=== PATIENT | male | born 1945 | race Caucasian/White ===

== ENCOUNTER 2016-12-11 20:17 | Emergency (ER) | payer OTHER ==
[2016-12-11 20:26] VITALS: BP 140/94; PULSE 84; TEMP 98.3; BMI 34.9
--- NOTE | 2016-12-11 20:26 | PDOC ---
History of Present Illness - General History Source: Patient, Old Records Exam Limitations: No Limitations - History of Present Illness Initial Comments: 12/11/16 20:40 The patient is a 71 year old male presenting with his family, with a significant past medical history of AFIB ([place]), HTN, HLD, diverticulosis, rectal bleeding, colitis, gout and kidney stones (last 3 months ago), who presents to the emergency department with left sided flank pain and hematuria onset today. He reports that his hematuria is mild in nature. He states that his left flank pain ranges from mild to moderate, without mild radiation to his abdomen. He notes that certain movements exacerbates his pain. He reports that his last kidney stone was 3 months ago, and it was 5 mm. He notes that he is not aware if it passed or not. The patient denies chest pain, shortness of breath, headache and dizziness. Denies fever, chills, nausea, vomit, diarrhea and constipation. Denies dysuria, frequency and urgency Allergies: None Past surgical history: Cardiac catherization, right knee arthroscopy surgeyr Social history: Rare alcohol use. No tobacco or drug use reported PMD - Dr. Bui Urology - Dr. Monotya [facility] - Dr. Gardner <Robert Brown - Last Filed: 12/11/16 20:40> <Patt Toscano - Last Filed: 12/12/16 05:31> - General Chief Complaint: Pain, Acute Stated Complaint: ABDOMINAL PAIN Time Seen by Provider: 12/11/16 20:25 Past History <Robert Brown - Last Filed: 12/11/16 20:40> - Past Medical History Anemia: No Asthma: No Cancer: No Cardiac Disorders: Yes (ATRIAL FIBRILLATION) CVA: No COPD: No CHF: No Dementia: No Diabetes: No GI Disorders: Yes (DIVERTICULOSIS, RECTAL BLEEDING, HX OF ISCHEMIC COLITIS?) Disorders: Yes (GOUT) HTN: Yes Hypercholesterolemia: Yes Liver Disease: No Seizures: No Thyroid Disease: No - Surgical History Abdominal Surgery: No Appendectomy: No Cardiac Surgery: (CARDIAC CATH) Cholecystectomy: No Lung Surgery: No Neurologic Surgery: No Orthopedic Surgery: Yes (RT KNEE ARTHROSCOPIC SX) - Psycho/Social/Smoking Cessation Hx Smoking History: Never smoked Have you smoked in the past 12 months: No Hx Alcohol Use: Yes (RARE) Drug/Substance Use Hx: No <Patt Toscano - Last Filed: 12/12/16 05:31> - Past Medical History Allergies/Adverse Reactions: Allergies Allergy/AdvReac Type Severity Reaction Status Date / Time No Known Allergies Allergy Verified 12/11/16 20:24 Home Medications: Ambulatory Orders Allopurinol [Zyloprim -] 300 mg PO HS 04/23/14 Cholecalciferol (Vitamin D3) [Vitamin D3] 2,000 unit PO DAILY 04/23/14 Dextrin [Fiber] 350 gm PO DAILY 04/23/14 Ezetimibe/Simvastatin [Vytorin 10-20 mg Tablet] 1 tab PO ASDIR 04/23/14 Metoprolol Succinate [Toprol Xl] 100 mg PO HS 04/23/14 Olmesartan Medoxomil [Benicar -] 40 mg PO DAILY 04/23/14 Pnv/Iron,Carb/Om-3/FA/Fat 1 [Multivitamin with Minerals Cap] 1 each PO DAILY Guar Gum [Benefiber] 1 each PO BID #0 packet 04/24/14 No Aspirin/Nsaids 04/24/14 Rivaroxaban [Xarelto -] 20 mg PO DAILY #0 04/24/14 Oxycodone HCl/Acetaminophen [Percocet 5/325 -] 1 tab PO Q6H #14 tablet MDD 4 05/19 Oxycodone HCl/Acetaminophen [Percocet 5/325 -] 1 tab PO Q6H #20 tablet MDD 4 05/19 Tamsulosin HCl [Flomax] 0.4 mg PO DAILY #7 cap.er.24h 12/11/16 Review of Systems - Review of Systems Able to Perform ROS?: Yes Comments:: 12/11/16 20:40 GENERAL/CONSTITUTIONAL: No fever or chills. No weakness. HEAD, EYES, EARS, NOSE AND THROAT: No change in vision. No ear pain or discharge. No sore throat. CARDIOVASCULAR: No chest pain or shortness of breath RESPIRATORY: No cough, wheezing, or hemoptysis. GASTROINTESTINAL: No nausea, vomiting, diarrhea or constipation. GENITOURINARY: (+) Left flank pain, hematuria. No dysuria, frequency MUSCULOSKELETAL: No joint or muscle swelling or pain. No neck pain. SKIN: No rash NEUROLOGIC: No headache, vertigo, loss of consciousness, or change in strength/ sensation. ENDOCRINE: No increased thirst. No abnormal weight change HEMATOLOGIC/LYMPHATIC: No anemia, easy bleeding, or history of blood clots. ALLERGIC/IMMUNOLOGIC: No hives or skin allergy. <Robert Brown - Last Filed: 12/11/16 20:40> *Physical Exam - Vital Signs Last Vital Signs Temp Pulse Resp BP Pulse Ox 98.3 F 84 22 140/94 98 12/11/16 20:24 12/11/16 20:24 12/11/16 20:24 12/11/16 20:24 12/11/16 20:24 - Physical Exam Comments: 12/11/16 20:41 GENERAL: Awake, alert, and fully oriented, in no acute distress HEAD: No signs of trauma, normocephalic, atraumatic EYES: PERRLA, EOMI, sclera anicteric, conjunctiva clear ENT: Auricles normal inspection, hearing grossly normal, nares patent, oropharynx clear without exudates. Moist mucosa NECK: Normal ROM, supple, no lymphadenopathy, JVD, or masses LUNGS: No distress, speaks full sentences, clear to auscultation bilaterally HEART: (+) Irregularly irregular. Normal S1 and S2, no murmurs, rubs or gallops , peripheral pulses normal and equal bilaterally. ABDOMEN: (+) Left flank tenderness and left lower quadrant tenderness. Soft, normoactive bowel sounds. No guarding, no rebound. No masses EXTREMITIES: Normal inspection, Normal range of motion, no edema. No clubbing or cyanosis. NEUROLOGICAL: Cranial nerves II through XII grossly intact. Normal speech, normal gait, no focal sensorimotor deficits SKIN: Warm, Dry, normal turgor, no rashes or lesions noted. <Robert Brown - Last Filed: 12/11/16 20:40> ED Treatment Course - LABORATORY CBC & Chemistry Diagram: 12/11/16 20:35 12/11/16 20:35 <Patt Toscano - Last Filed: 12/12/16 05:31> Medical Decision Making - Medical Decision Making 12/11/16 22:24 Patient Name: Devante Galdamez THIS IS A PRELIMINARY REPORT FROM [employer] [employer] IMAGES: 483 EXAM DATE AND TIME: 2016-12-11 21:32:24.0 EXAM: CT ABDOMEN AND PELVIS WITHOUT CONTRAST 4 mm stone distal left ureter causing minimal hydronephrosis. Punctate stones left kidney. Unremarkable pancreas and gallbladder. No bowel obstruction, colitis, free fluid or free air. Normal appendix extending into a small right inguinal region hernia that also contains fat. Diverticulosis colon. Nodular thickening bilateral adrenal glands. Coronary artery disease. THIS DOCUMENT HAS BEEN ELECTRONICALLY SIGNED 12/12/16 05:31 Pt will follow with DR. Bui and Dr. Montoya as an outpatient; hehas a 4mm stone which will likely pass on its own. <Patt Toscano - Last Filed: 12/12/16 05:31> *DC/Admit/Observation/Transfer - Attestations Scribe Attestion: 12/11/16 20:42 Documentation prepared by Robert Brown, acting as medical supervisor for Patt Toscano MD <Robert Brown - Last Filed: 12/11/16 20:40> - Discharge Dispostion Admit: No <Patt Toscano - Last Filed: 12/12/16 05:31> Diagnosis at time of Disposition: Ureteral stone - Discharge Dispostion Disposition: HOME Condition at time of disposition: Stable - Prescriptions Prescriptions: Tamsulosin HCl [Flomax] 0.4 mg PO DAILY #7 cap.er.24h Oxycodone HCl/Acetaminophen [Percocet 5/325 -] 1 tab PO Q6H #14 tablet MDD 4 Oxycodone HCl/Acetaminophen [Percocet 5/325 -] 1 tab PO Q6H #20 tablet MDD 4 - Referrals Referrals: Orlando Bui MD [Primary Care Provider] - - Patient Instructions Printed Discharge Instructions: Kidney Stones -- Adult
[2016-12-11] MEDS ORDERED: SODIUM CHLORIDE 0.9% 500 ML INFUS.BAG IV ONE (20:37)
[2016-12-11] MEDS ORDERED: morphine CARPU-JECT 2 MG/1 ML DISP.SYRIN IVPUSH ONE (20:38)
[2016-12-11] MEDS ORDERED: METOCLOPRAMIDE HCL INJECTION 10 MG/2 ML VIAL IVPB ONE (20:39)
[2016-12-11] MEDS ORDERED: METOCLOPRAMIDE HCL INJECTION 10 MG/2 ML VIAL ONE (20:42)
[2016-12-11] MEDS ORDERED: morphine CARPU-JECT 2 MG/1 ML DISP.SYRIN ONE (20:42)
[2016-12-11 20:48] LABS: BASOPHIL 0.4 % (0-2.0); EOSINOPHIL 1.1 % (0-4.5); MCH 32.2 pg (25.7-33.7); MCHC 32.3 g/dl (32.0-35.9); MEAN CELL VOLUME 99.6 fl (80-96); MEAN PLT VOLUME 9.3 fl (7.5-11.1); NEUTROPHILS 73.6 % (42.8-82.8); PLATELET COUNT 166 K/MM3 (134-434); RDW 15.2 % (11.9-15.9); WHITE BLOOD COUNT 8.9 K/mm3 (4.0-10.0)
[2016-12-11 21:01] LABS: INR 1.78 (0.82-1.09); PROTHROMBIN TIME (PATIENT) 19.8 SEC (9.98-11.88)
[2016-12-11 21:14] LABS: ALBUMIN 4.4 g/dl (3.4-5.0); BILIRUBIN,TOTAL 0.6 mg/dL (0.2-1.0); CALCIUM 9.2 mg/dL (8.5-10.1); COCKROFT - GAULT 75.79; CREATININE 1.3 mg/dL (0.7-1.3); TOT PROT 7.9 g/dl (6.4-8.2)
[2016-12-11] MEDS ORDERED: TAMSULOSIN HCL 0.4 MG CAP.ER.24H (FP) PO ONE (22:25)
[2016-12-11] MEDS ORDERED: TAMSULOSIN HCL 0.4 MG CAP.ER.24H (FP) ONE (22:29)
[2016-12-11 23:12] LABS: URINE APPEARANCE CLEAR; URINE BILIRUBIN NEGATIVE (NEGATIVE); URINE BLOOD 3+ (NEGATIVE); URINE COLOR YELLOW; URINE GLUCOSE (UA) NEGATIVE (NEGATIVE); URINE KETONE 1+ (NEGATIVE); URINE LEUK ESTERASE TRACE (NEGATIVE); URINE NITRITE NEGATIVE (NEGATIVE); URINE PROTEIN NEGATIVE (NEGATIVE); URINE UROBILINOGEN NEGATIVE E.U./dl (0.2-1.0)
[2016-12-11 23:14] LABS: URINE BACTERIA RARE /hpf (NONE SEEN); URINE HYALINE CAST 1 /lpf; URINE MUCUS RARE; URINE RBC 37 /hpf (0-3); URINE WBC 13 /hpf (3-5)
== END 2016-12-11 23:11 | disposition home or self-care (01) ==
LOC: JER 20:17
PROC: 3E033GC Introduction of Other Therapeutic Substance into Peripheral Vein, Percutaneous Approach (ICD-10-PCS; principal; 2016-12-11)
PROC: 3E033NZ Introduction of Analgesics, Hypnotics, Sedatives into Peripheral Vein, Percutaneous Approach (ICD-10-PCS; 2016-12-11)
PROC: 3E0337Z Introduction of Electrolytic and Water Balance Substance into Peripheral Vein, Percutaneous Approach (ICD-10-PCS; 2016-12-11)
DX: N20.1 Calculus of ureter (principal); I48.91 Unspecified atrial fibrillation; Z79.01 Long term (current) use of anticoagulants; I10 Essential (primary) hypertension; E78.5 Hyperlipidemia, unspecified; M10.9 Gout, unspecified; Z87.19 Personal history of other diseases of the digestive system; Z98.61 Coronary angioplasty status
CPT/HCPCS: 36415; 74176; 80053; 81003; 81015; 85025; 85610; 96374; 96375; 99281-25

== ENCOUNTER 2017-06-01 10:57 | Emergency (ER) | payer OTHER ==
[2017-06-01 11:02] VITALS: BP 144/83; PULSE 75; TEMP 97.7; BMI 34.9
--- NOTE | 2017-06-01 11:59 | PDOC ---
History of Present Illness - General Chief Complaint: Wound Stated Complaint: Scrotum skin tear Time Seen by Provider: 06/01/17 11:17 History Source: Patient Exam Limitations: No Limitations - History of Present Illness Initial Comments: 06/01/17 11:59 My Chief Complaint: rt. scrotom bleeding History of PResent Illness: Pt. is a 72 yr old male with h/o gout, atrial fib, gout, hyperlipidemia, HTN and renal calculi here today due to have bleeding from rt. scrotal sac this morning that has been bleeding intermittently. Patient denies scratching his testicles this morning or last night. Patient denies any testicular pain. Timing/Duration: intermittent (today ) Severity: mild Associated Symptoms: reports: other (bleeding from right scrotum since this morning) Past History - Past Medical History Allergies/Adverse Reactions: Allergies Allergy/AdvReac Type Severity Reaction Status Date / Time No Known Allergies Allergy Verified 06/01/17 11:02 Home Medications: Ambulatory Orders Allopurinol [Zyloprim -] 300 mg PO HS 04/23/14 Cholecalciferol (Vitamin D3) [Vitamin D3] 2,000 unit PO DAILY 04/23/14 Dextrin [Fiber] 350 gm PO DAILY 04/23/14 Ezetimibe/Simvastatin [Vytorin 10-20 mg Tablet] 1 tab PO ASDIR 04/23/14 Metoprolol Succinate [Toprol Xl] 100 mg PO HS 04/23/14 Olmesartan Medoxomil [Benicar -] 40 mg PO DAILY 04/23/14 Pnv/Iron,Carb/Om-3/FA/Fat 1 [Multivitamin with Minerals Cap] 1 each PO DAILY Guar Gum [Benefiber] 1 each PO BID #0 packet 04/24/14 No Aspirin/Nsaids 04/24/14 Rivaroxaban [Xarelto -] 20 mg PO DAILY #0 04/24/14 Oxycodone HCl/Acetaminophen [Percocet 5/325 -] 1 tab PO Q6H #14 tablet MDD 4 05/19 Oxycodone HCl/Acetaminophen [Percocet 5/325 -] 1 tab PO Q6H #20 tablet MDD 4 05/19 Tamsulosin HCl [Flomax] 0.4 mg PO DAILY #7 cap.er.24h 12/11/16 Anemia: No Asthma: No Cancer: No Cardiac Disorders: Yes (ATRIAL FIBRILLATION) CVA: No COPD: No CHF: No Dementia: No Diabetes: No GI Disorders: Yes (DIVERTICULOSIS, RECTAL BLEEDING, HX OF ISCHEMIC COLITIS?) Disorders: Yes (GOUT) HTN: Yes Hypercholesterolemia: Yes Liver Disease: No Seizures: No Thyroid Disease: No Other medical history: obesity - Surgical History Abdominal Surgery: No Appendectomy: No Cardiac Surgery: (CARDIAC CATH) Cholecystectomy: No Lung Surgery: No Neurologic Surgery: No Orthopedic Surgery: Yes (RT KNEE ARTHROSCOPIC SX) - Immunization History Immunization Up to Date: Yes - Suicide/Smoking/Psychosocial Hx Smoking History: Never smoked Have you smoked in the past 12 months: No Information on smoking cessation initiated: No Hx Alcohol Use: No Drug/Substance Use Hx: No Substance Use Type: None Review of Systems - Review of Systems Able to Perform ROS?: Yes Constitutional: No: Symptoms Reported HEENTM: No: Symptoms Reported Respiratory: No: Symptoms reported Cardiac (ROS): No: Symptoms Reported ABD/GI: No: Symptoms Reported : No: Symptoms Reported Integumentary: Yes: Other (bleeding from rt. scrotum this morning ) Neurological: No: Symptoms reported *Physical Exam - Vital Signs Last Vital Signs Temp Pulse Resp BP Pulse Ox 97.7 F 75 18 144/83 98 06/01/17 11:00 06/01/17 11:00 06/01/17 11:00 06/01/17 11:00 06/01/17 11:00 - Physical Exam General Appearance: Yes: Appropriately Dressed Respiratory/Chest: positive: Lungs Clear, Normal Breath Sounds. negative: Chest Tender, Respiratory Distress Cardiovascular: positive: Regular Rhythm, Regular Rate, S1, S2 Male Genitalia: negative: discharge, testicular tenderness, testicular mass, epididymus tender, inguinal hernia, hernia Integumentary: positive: Other (rt. scrotum nevi noted with bleeding slightly below nevi) Procedures - Consent Consent obtained: From Patient - Additional Procedures Progress: 06/01/17 12:12 Cleanse right scrotal area where bleeding was occurring slightly below nevi with Betadine and normal saline 0.9% dried area and applied a tiny strip of Surgicel and a 2 x 2 over Surgicel bleeding stopped Medical Decision Making - Medical Decision Making 06/01/17 12:13 Pt. is a 72 yr old male with h/o gout, atrial fib, gout, hyperlipidemia, HTN and renal calculi here today due to have bleeding from rt. scrotal sac this morning that has been bleeding intermittently. Patient denies scratching his testicles this morning or last night. Patient denies any testicular pain. bleeding slightly below nevi rt. 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 he does not remember the name of for further evaluation *DC/Admit/Observation/Transfer Diagnosis at time of Disposition: Bleeding nevus - Discharge Dispostion Disposition: HOME Condition at time of disposition: Stable - Referrals Referrals: Orlando Bui MD [Primary Care Provider] - - Patient Instructions Additional Instructions: Do not remove dressing from scrotum Follow-up with your matzo forming machine operator as soon as possible Return to emergency room if symptoms worsen excessive bleeding unable to control bleeding Patient voiced understanding of discharge instructions and all questions were answered - Post Discharge Activity
== END 2017-06-01 12:22 | disposition home or self-care (01) ==
LOC: JERFT 10:57
DX: D18.00 Hemangioma unspecified site (principal); R58 Hemorrhage, not elsewhere classified; I48.91 Unspecified atrial fibrillation; E78.5 Hyperlipidemia, unspecified; I10 Essential (primary) hypertension
CPT/HCPCS: 99281-25

== ENCOUNTER 2020-01-01 13:27 | Emergency (ER) | payer OTHER ==
[2020-01-01] MEDS ORDERED: DIPHTH,PERTUSS(ACELL),TET 0.5 ML DISP.SYRIN IM ONE (13:34)
[2020-01-01 13:35] VITALS: BP 117/85; PULSE 94; TEMP 98; BMI 34.9
--- NOTE | 2020-01-01 13:35 | PDOC ---
Rapid Medical Evaluation Time Seen by Provider: 01/01/20 13:30 Medical Evaluation: Allergies Allergy/AdvReac Type Severity Reaction Status Date / Time No Known Allergies Allergy Verified 06/01/17 11:02 01/01/20 13:31 Pt presents for evaluation after a fall on Monday with L knee pain/swelling. He states he tripped over a crack in the sidewalk. Denies hitting his head or losing consciousness. He notes that he takes eliquis and states that the bleeding from his L knee was negative. Exam: swelling to L knee with bruising and hematoma, active bleeding Orders; x-ray, tetanus Pt to proceed to the ER for further evaluation Discharge Disposition - Diagnosis Knee pain Qualifiers: Chronicity: acute Laterality: left Qualified Code(s): M25.562 - Pain in left knee Fall Qualifiers: Encounter type: initial encounter Qualified Code(s): W19.XXXA - Unspecified fall, initial encounter - Referrals - Patient Instructions - Post Discharge Activity
[2020-01-01] MEDS ORDERED: ACETAMINOPHEN 500 MG TABLET (FP) PO ONE (14:33)
--- NOTE | 2020-01-01 15:18 | PDOC ---
History of Present Illness - General Chief Complaint: Injury Stated Complaint: FALL Time Seen by Provider: 01/01/20 13:30 History Source: Patient - History of Present Illness Occurred: reports: other Severity: reports: moderate Pain Location: reports: lower extremity Method of Injury: Yes: fall Past History - Medical History Allergies/Adverse Reactions: Allergies Allergy/AdvReac Type Severity Reaction Status Date / Time No Known Allergies Allergy Verified 06/01/17 11:02 Home Medications: Ambulatory Orders Allopurinol [Zyloprim -] 300 mg PO HS 04/23/14 Cholecalciferol (Vitamin D3) [Vitamin D3] 2,000 unit PO DAILY 04/23/14 Dextrin [Fiber] 350 gm PO DAILY 04/23/14 Ezetimibe/Simvastatin [Vytorin 10-20 mg Tablet] 1 tab PO ASDIR 04/23/14 Metoprolol Succinate [Toprol Xl] 100 mg PO HS 04/23/14 Pnv/Iron,Carb/Om-3/FA/Fat 1 [Multivitamin with Minerals Cap] 1 each PO DAILY 04/23/14 Guar Gum [Benefiber] 1 each PO BID #0 packet 04/24/14 Rivaroxaban [Xarelto -] 20 mg PO DAILY #0 04/24/14 Tamsulosin HCl [Flomax] 0.4 mg PO DAILY #7 cap.er.24h 12/11/16 Azithromycin 250 mg PO ONCE 1 Days #1 tablet 10/11/19 Cefuroxime Axetil [Ceftin -] 500 mg PO Q12H 3 Days #6 tablet 10/11/19 Ramipril 5 mg PO DAILY 10/11/19 Zinc Sulfate [Zinc-220] 220 mg PO DAILY 30 Days #30 capsule 10/11/19 Anemia: No Asthma: No Cancer: No Cardiac Disorders: Yes (ATRIAL FIBRILLATION) CVA: No COPD: No CHF: No Dementia: No Diabetes: No GI Disorders: Yes (DIVERTICULOSIS, RECTAL BLEEDING, HX OF ISCHEMIC COLITIS?) Disorders: Yes (GOUT) HTN: Yes Hypercholesterolemia: Yes Liver Disease: No Seizures: No Thyroid Disease: No - Surgical History Abdominal Surgery: No Appendectomy: No Cardiac Surgery: Yes (CARDIAC CATH) Cholecystectomy: No Lung Surgery: No Neurologic Surgery: No Orthopedic Surgery: Yes (RT KNEE ARTHROSCOPIC SX) - Immunization History Immunization Up to Date: No - Psycho-Social/Smoking History Smoking History: Never smoked Have you smoked in the past 12 months: No - Substance Abuse Hx (Audit-C & DAST Scrn) How often the patient has a drink containing alcohol: Never Score: In Men: 4 or > Positive; In Women: 3 or > Positive: 0 Screen Result (Pos requires Nsg. Audit-10AR): Negative In the last yr the pt used illegal drug/Rx for NonMed reason: No Score: Yes response is considered Positive: 0 Screen Result (Positive result requires Nsg. DAST-10): Negative Review of Systems - Review of Systems Constitutional: No: Chills, Fever Musculoskeletal: Yes: Joint Pain, Joint Swelling *Physical Exam - Vital Signs Last Vital Signs Temp Pulse Resp BP Pulse Ox 98.0 F 94 H 20 117/85 100 01/01/20 13:32 01/01/20 13:32 01/01/20 13:32 01/01/20 13:32 01/01/20 13:32 - Physical Exam General Appearance: Yes: Appropriately Dressed. No: Apparent Distress HEENT: positive: Normal Voice Neck: positive: Supple Respiratory/Chest: negative: Respiratory Distress Extremity: positive: Other (diffuse swelling to L knee w/ extensive ecchymosis extending into leg w/ diffuse swelling of leg (unchanged since injury), sensation and pedal pulses intact, 2x1 cm superficial abrasion to anterior L knee w/ no surrounding erythema, warth or sig ttp) Integumentary: positive: Dry, Warm Neurologic: positive: Fully Oriented, Alert, Normal Mood/Affect ED Treatment Course - Medications Given in the ED: ED Medications Discontinued Medications Generic Name Dose Route Start Last Admin Trade Name Mckayla PRN Reason Stop Dose Admin Acetaminophen 1,000 mg 01/01/20 14:33 01/01/20 14:36 Tylenol - PO 01/01/20 14:34 1,000 mg ONCE ONE Administration Diphtheria/Tetanus/Acell Pertussis 0.5 ml 01/01/20 13:34 01/01/20 14:06 Boostrix - IM 01/01/20 13:35 0.5 ml .ONCE ONE Administration Medical Decision Making - Medical Decision Making 01/01/20 15:13 74 yo M, h/o HLD, HTN, afib on xarelto, here w/ L knee pain and swelling after mechanical outdoors 3 days ago. States he has been able to bear weight w/ cane. Pt states he is mostly concerned about a wound to L knee that continues to bleed. No head injury LOC, QUINONEZ, dizziness, n/v. Denies other injuries See exam L knee contusion s/p mechanical fall 3 days ago On xarelto No head injury pr LOC No CP or dizziness prior to fall No active bleed No e/o infection No e/o compartment syndrome as d/w ED attg, Dr Scott, who also evaluated pt in ED No effusion on XR Able to bear weight Dre dressing placed To dc w/ RICE and return as needed and f/u with PMD Discharge - Discharge Information Problems reviewed: Yes Clinical Impression/Diagnosis: Knee pain Qualifiers: Chronicity: acute Laterality: left Qualified Code(s): M25.562 - Pain in left knee Fall Qualifiers: Encounter type: initial encounter Qualified Code(s): W19.XXXA - Unspecified fall, initial encounter Knee contusion Qualifiers: Encounter type: initial encounter Laterality: left Qualified Code(s): S80.02XA - Contusion of left knee, initial encounter Condition: Good Disposition: HOME - Follow up/Referral - Patient Discharge Instructions Patient Printed Discharge Instructions: Contusion Additional Instructions: Keep DRE in place and elevated R leg at home to assist with swellin Take tylenol as needed for pain Return for any worsening of bleeding Please follow up with your PMD - Post Discharge Activity
== END 2020-01-01 15:58 | disposition home or self-care (01) ==
LOC: JERFT 13:27
PROC: 3E0234Z Introduction of Serum, Toxoid and Vaccine into Muscle, Percutaneous Approach (ICD-10-PCS; principal; 2020-01-01)
DX: S80.02XA Contusion of left knee, initial encounter (principal); W19.XXXA Unspecified fall, initial encounter
CPT/HCPCS: 73562-TC-LT-FY; 90715; 99283-25